=== PATIENT | female | born 1990 | race Two or more races ===

== ENCOUNTER 2020-11-30 12:12 | Emergency (ER) | payer OTHER ==
[~2020-11-30] VITALS: Ht 157.5 cm; Wt 67.7 kg
[2020-11-30 15:33] VITALS: BP 123/75
== END 2020-11-30 15:49 | disposition home or self-care (01) ==
LOC: EMS 12:12
DX: Z11.1 Encounter for screening for respiratory tuberculosis (principal)
CPT/HCPCS: 99283; 71045-TC